=== PATIENT | male | born 1975 | race African-American/Black ===

== ENCOUNTER 2018-12-20 10:27 | Emergency (ER) | payer SELFPAY ==
[~2018-12-20] VITALS: Ht 185.4 cm; Wt 90.9 kg
[2018-12-20 13:01] VITALS: BP 134/89
== END 2018-12-20 13:44 | disposition home or self-care (01) ==
LOC: EMS 10:27
DX: S06.0X9A Concussion with loss of consciousness of unspecified duration, initial encounter (principal); M62.830 Muscle spasm of back; R11.0 Nausea; Z88.6 Allergy status to analgesic agent; V43.52XA Car driver injured in collision with other type car in traffic accident, initial encounter; Y93.89 Activity, other specified; Y92.89 Other specified places as the place of occurrence of the external cause; Y99.8 Other external cause status
CPT/HCPCS: 72072

== ENCOUNTER 2023-12-27 04:30 | Emergency (ER) | payer OTHER ==
[~2023-12-27] VITALS: Ht 185.4 cm; Wt 77.7 kg
[2023-12-27] MEDS ORDERED: FLUORESCEIN SODIUM 1 MG STRIP ONE (04:53)
[2023-12-27 05:06] VITALS: BP 134/79; PULSE 74; RESP 16; TEMP 98.3; O2SAT 100
[2023-12-27] MEDS: FLUORESCEIN SODIUM 1 MG STRIP OS ONE (05:13)
== END 2023-12-27 06:02 | disposition home or self-care (01) ==
LOC: EMS 04:31
DX: H57.8A2 Foreign body sensation, left eye (principal); F12.90 Cannabis use, unspecified, uncomplicated; T15.02XA Foreign body in cornea, left eye, initial encounter; Z88.6 Allergy status to analgesic agent; W44.8XXA Other foreign body entering into or through a natural orifice, initial encounter; Y93.89 Activity, other specified; Y92.89 Other specified places as the place of occurrence of the external cause; Y99.8 Other external cause status
CPT/HCPCS: 99283

== ENCOUNTER 2024-01-30 01:48 | Emergency (ER) | payer SELFPAY ==
[~2024-01-30] VITALS: Ht 185.4 cm; Wt 84.1 kg
[2024-01-30 01:57] VITALS: TEMP 98.1
[2024-01-30 03:23] LABS: COVID AG,FIA SOURCE NASAL SWAB
[2024-01-30 03:24] LABS: BASOPHILS % (AUTO) 0.8 % (0.0-2.0); EOSINOPHILS % (AUTO) 0.8 % (1.0-6.0); HEMATOCRIT 42.8 % (41-53); HEMOGLOBIN 14.5 g/dL (13.5-17.5); LYMPHOCYTES # (AUTO) 2.4 K/uL (1.0-4.8); LYMPHOCYTES % (AUTO) 32.4 % (22.0-44.0); MEAN CORPUSCULAR HEMOGLOBIN 30.3 pg (26.0-34.0); MEAN CORPUSCULAR HGB CONC 33.9 G/dL (31.0-37.0); MEAN CORPUSCULAR VOLUME 89 fL (80-100); MONOCYTES # (AUTO) 0.5 K/uL (0.1-1.0); MONOCYTES % (AUTO) 6.7 % (2.0-9.0); NEUTROPHILS # (AUTO) 4.4 K/uL (1.8-7.7); NEUTROPHILS % (AUTO) 59.3 % (40.0-70.0); PLATELET COUNT (AUTO) 205 K/uL (150-450); RED BLOOD CELL COUNT(AUTO) 4.79 MIL/uL (4.50-5.90); RED CELL DISTRIBUTION WIDTH 16.2 % (11.5-14.5); WHITE BLOOD COUNT (AUTO) 7.3 K/uL (4.5-11.0)
[2024-01-30 03:30] LABS: ANION GAP 8 mmol/L (8-16); CALCIUM, TOTAL 8.4 mg/dL (8.8-10.5); CARBON DIOXIDE 29 mmol/L (22-29); CHLORIDE 101 mmol/L (98-107); CREATININE 1.23 mg/dL (0.60-1.30); GLOMERULAR FILTR. RATE CALC > 60 mL/min (>60); GLUCOSE,RANDOM 80 mg/dL (70-110); POTASSIUM 3.9 mmol/L (3.5-5.1); SODIUM SERUM 138 mmol/L (136-145); UREA NITROGEN, BLOOD 13 mg/dL (7-18)
[2024-01-30 03:40] LABS: SARS-COV2 (COVID) ANTIGEN,FIA Negative (Negative)
[2024-01-30 03:42] LABS: ALCOHOL, BLOOD (SERUM) < 3 mg/dL (0-10)
[2024-01-30] MEDS: OLANZapine 5 MG TABLET PO ONE (04:01)
[2024-01-30 05:31] LABS: ALCOHOL, URINE DRUG SCREEN NEGATIVE (NEGATIVE); AMPHET/METH SCREEN,URINE NEGATIVE (NEGATIVE); BARBITURATE SCREEN, URINE POSITIVE (NEGATIVE); BENZODIAZEPINES SCREEN,URINE NEGATIVE (NEGATIVE); CANNABINOID SCREEN,URINE POSITIVE (NEGATIVE); COCAINE SCREEN,URINE NEGATIVE (NEGATIVE); METHADONE SCREEN, URINE NEGATIVE (NEGATIVE); OPIATE SCREEN,URINE NEGATIVE (NEGATIVE); PHENCYCLIDINE SCREEN,URINE NEGATIVE (NEGATIVE)
[2024-01-30 05:51] VITALS: BP 148/88; PULSE 68; RESP 18; O2SAT 97
== END 2024-01-30 05:54 | disposition home or self-care (01) ==
LOC: EMS 01:48
DX: R44.1 Visual hallucinations (principal); F12.90 Cannabis use, unspecified, uncomplicated; Z88.0 Allergy status to penicillin; Z88.6 Allergy status to analgesic agent; Z20.822 Contact with and (suspected) exposure to COVID-19
CPT/HCPCS: 99284; 87426; 80048; 85025; 36415; 80307; G0480

== ENCOUNTER 2024-02-02 09:30 | Emergency (ER) | payer OTHER ==
[~2024-02-02] VITALS: Ht 177.8 cm; Wt 84.1 kg
[2024-02-02 09:35] VITALS: TEMP 98
[2024-02-02 10:25] LABS: BASOPHILS % (AUTO) 1.3 % (0.0-2.0); HEMATOCRIT 45.8 % (41-53); HEMOGLOBIN 15.3 g/dL (13.5-17.5); LYMPHOCYTES # (AUTO) 2.4 K/uL (1.0-4.8); LYMPHOCYTES % (AUTO) 40.4 % (22.0-44.0); MEAN CORPUSCULAR HEMOGLOBIN 30.1 pg (26.0-34.0); MEAN CORPUSCULAR HGB CONC 33.5 G/dL (31.0-37.0); MEAN CORPUSCULAR VOLUME 90 fL (80-100); MONOCYTES # (AUTO) 0.6 K/uL (0.1-1.0); MONOCYTES % (AUTO) 9.3 % (2.0-9.0); NEUTROPHILS # (AUTO) 2.8 K/uL (1.8-7.7); PLATELET COUNT (AUTO) 217 K/uL (150-450); RED BLOOD CELL COUNT(AUTO) 5.09 MIL/uL (4.50-5.90); RED CELL DISTRIBUTION WIDTH 16.1 % (11.5-14.5)
[2024-02-02 10:32] LABS: ANION GAP 9 mmol/L (8-16); CALCIUM, TOTAL 8.6 mg/dL (8.8-10.5); CARBON DIOXIDE 27 mmol/L (22-29); CHLORIDE 105 mmol/L (98-107); CREATININE 1.22 mg/dL (0.60-1.30); GLOMERULAR FILTR. RATE CALC > 60 mL/min (>60); GLUCOSE,RANDOM 98 mg/dL (70-110); POTASSIUM 3.9 mmol/L (3.5-5.1); SODIUM SERUM 141 mmol/L (136-145); UREA NITROGEN, BLOOD 12 mg/dL (7-18)
[2024-02-02 10:42] LABS: ALCOHOL, BLOOD (SERUM) < 3 mg/dL (0-10)
[2024-02-02 11:47] LABS: ALCOHOL, URINE DRUG SCREEN NEGATIVE (NEGATIVE); AMPHET/METH SCREEN,URINE NEGATIVE (NEGATIVE); BARBITURATE SCREEN, URINE NEGATIVE (NEGATIVE); BENZODIAZEPINES SCREEN,URINE NEGATIVE (NEGATIVE); CANNABINOID SCREEN,URINE POSITIVE (NEGATIVE); COCAINE SCREEN,URINE NEGATIVE (NEGATIVE); METHADONE SCREEN, URINE NEGATIVE (NEGATIVE); OPIATE SCREEN,URINE NEGATIVE (NEGATIVE); PHENCYCLIDINE SCREEN,URINE NEGATIVE (NEGATIVE)
[2024-02-02 13:20] VITALS: BP 145/83; PULSE 78; RESP 16; O2SAT 98
== END 2024-02-02 13:24 | disposition home or self-care (01) ==
LOC: EMS 09:30
DX: F25.9 Schizoaffective disorder, unspecified (principal); F12.90 Cannabis use, unspecified, uncomplicated; Z88.0 Allergy status to penicillin; Z88.6 Allergy status to analgesic agent
CPT/HCPCS: 99283; 80048; 85025; 36415; 80307; G0480

== ENCOUNTER → 2024-03-04 | Emergency (ER) | payer OTHER ==
[~2024-03-04] VITALS: Ht 185.4 cm; Wt 77.3 kg
[2024-03-05 00:12] VITALS: BP 136/67; PULSE 86; RESP 18; TEMP 98.1; O2SAT 96
== END | disposition left against medical advice (07) ==
LOC: EMS 23:15
DX: K08.89 Other specified disorders of teeth and supporting structures (principal); Z53.21 Procedure and treatment not carried out due to patient leaving prior to being seen by health care provider